=== PATIENT | female | born 1945 | race Hispanic/Latino ===

== ENCOUNTER 2018-03-05 10:59 | Day surgery (SDC) | payer MEDICARE, MEDICAID ==
[2018-03-05 11:46] LABS: #Eosinphils 0.1 thou/uL (0.0-0.7); #Lymphocytes 1.7 thou/uL (1.20-3.40); #Monocytes 0.8 thou/uL (0.11-0.59); #Neutrophils 10.2 thou/uL (1.40-6.50); %Basophils 0.2 % (0.0-1.0); %Eosinophils 0.6 % (0.0-10.0); %Lymphocytes 13.3 % (21.0-51.0); %Monocytes 6.4 % (0.0-10.0); %Neutrophils 79.4 % (42.0-75.0); Hemoglobin 15.5 g/dL (12.0-16.0); Mean Corpuscular HGB CONC 33.4 g/dL (32.0-36.0); Mean Corpuscular Volume 86.8 fL (78.0-98.0); Mean Platelet Volume 7.4 fL (7.4-10.4); Platelet Count 266 thou/uL (130-400); RBC Distribution Width 12.4 % (11.5-14.5); Red Blood Cell (RBC) Count 5.33 mill/uL (4.20-5.40); White Blood Cell (WBC) Count 12.8 thou/uL (4.8-10.8)
[2018-03-05 11:47] LABS: Bilirubin Negative (Negative); Blood, Urine Negative (Negative); Clarity CLEAR (Clear); Glucose, Urine (Dipstick) Negative (Negative); Leukocyte Negative (Negative); Nitrite Negative (Negative); Protein, Urine (Dipstick) 30 mg/dL (Neg-Trace); Specific Gravity, Urine 1.019 (1.002-1.036)
[2018-03-05 11:50] LABS: Bacteria/HPF None Seen HPF (None Seen); Hyaline Casts/LPF 0-3 HYALINE CAST LPF (0-3 Hyaline); RBC/HPF 0-3 HPF (0-3); Squamous Epithelial 0-3 HPF (0-3); WBC/HPF 0-3 HPF (0-3)
[2018-03-05 12:03] LABS: ALT (SGPT) 206 U/L (8-55); AST (SGOT) 456 U/L (5-34); Albumin 4.2 g/dL (3.4-4.8); Alkaline Phosphatase 154 U/L (40-150); Anion Gap 14 mmol/L (10-20); BUN (Urea Nitrogen) 13 mg/dL (9.8-20.1); Bilirubin, Total 0.9 mg/dL (0.2-1.2); Calc. Creatinine Clearance 0 mL/min (70-130); Calcium 9.2 mg/dL (7.8-10.44); Carbon Dioxide 22 mmol/L (23-31); Chloride 104 mmol/L (98-107); Estimated GFR-MDRD 86; Globulin 3.4 g/dL (2.4-3.5); Glucose 129 mg/dL (83-110); Protein, Total 7.6 g/dL (6.0-8.3); Sodium 136 mmol/L (136-145)
--- NOTE | 2018-03-05 14:07 | ULT ---
GALLBLADDER ULTRASUOND: HISTORY: Abdominal pain. COMPARISON: None. TECHNIQUE: Utilizing a multihertz transducer, sonographic imaging in the abdomen is performed in the longitudina l and transverse plane. FINDINGS: Pancreas is poorly defined due to bowel gas. The visualized pancreatic parenchyma appears to be echo genic. Correlate clinically for possible pancreatitis. There is increased echogenicity in the liver which may be due to hepatic steatosis or hepatocellular disease. Subsequent evaluation for hepatic masses and intrahepatic biliary dilatation is limited. Within the lumen of the gallbladder, there is echogenic material compatible with gallstones. Gallbla dder wall is thickened. There is no pericholecystic fluid. Negative Reina's sign is reported. Common bile duct diameter is 0.5 cm. The right kidney has a normal cortical echotexture. No hydronephrosis. The right kidney measures 10 cm in maximum dimension. IMPRESSION: 1. Echogenic pancreas. Correlate for pancreatitis. 2. Sonographic evidence of cholelithiasis with findings that are equivocal for cholecystitis. There is gallbladder wall thickening. However, a negative Reina's sign is reported. HIDA scan may be be neficial. POS: [facility]
[2018-03-05] MEDS ORDERED: Dexamethasone 20 MG/5 ML VIAL ONE (14:52)
[2018-03-05] MEDS ORDERED: PROPOFOL 200 MG/20 ML VIAL ONE (14:52)
[2018-03-05] MEDS ORDERED: Ondansetron HCl/PF 4 MG/2 ML Vial ONE (14:52)
[2018-03-05] MEDS ORDERED: Glycopyrrolate 0.2 MG/ML 5 ML SYRINGE ONE (14:52)
[2018-03-05] MEDS ORDERED: Lidocaine 1% PF 5 ML VIAL ONE (14:52)
[2018-03-05] MEDS ORDERED: Levofloxacin 500 mg/D5W 100 ml Premix Bag ONE (15:09)
[2018-03-05] MEDS ORDERED: Ketorolac Tromethamine 30 MG/ML VIAL ONE (15:50)
[2018-03-05] MEDS ORDERED: Scopolamine 1.5 mg/72 hour Patch ONE (15:50)
[2018-03-05] MEDS ORDERED: Bupivacaine HCl 0.5%/Epinephrine 1:200,000/PF 30 ml Vial ONE (16:54)
[2018-03-05] MEDS ORDERED: Fentanyl 100 MCG/2 ML VIAL ONE (17:01)
[2018-03-05] MEDS ORDERED: SUGAMMADEX SODIUM 200 MG/2 ML VIAL ONE (18:01)
--- NOTE | 2018-03-05 21:21 | OP ---
DATE OF PROCEDURE: 03/05/2018 PREOPERATIVE DIAGNOSES: Acute cholecystitis, cholelithiasis, gallbladder outlet obstruction. POSTOPERATIVE DIAGNOSES: Acute cholecystitis, cholelithiasis, gallbladder outlet obstruction. PROCEDURE: Laparoscopic video cholecystectomy. SURGEON: Fortino Sexton MD ANESTHESIA: General, local 0.5% Marcaine with epinephrine 30 mL. DESCRIPTION OF PROCEDURE: The patient was taken to the operating room, where under general anesthesi a, abdomen was prepared with ChloraPrep, draped in routine fashion. Local anesthetic infiltrated int o the skin and subcutaneous tissue at each port site. Infraumbilical incision was made. Pneumoperit oneum to 15 mmHg was obtained with the Veress needle, replacing it with a 5-port, laparoscope inserte d. Right subxiphoid incision made and 11-port placed. Right subcostal incision made in mid clavicul ar and anterior axillary lines and 5-ports placed. Liver was fatty. Gallbladder was acutely inflame d, thickened and edematous wall. Fundus was grasped, retracted cephalad. Infundibulum was grasped, reflected laterally. Cystic artery and duct were dissected free. Critical view obtained. Cystic ar nanette and duct doubly clipped proximally, divided, and gallbladder dissected free from its edematous a ttachments to the liver bed using cautery for hemostasis. Extensive cautery was used in liver bed fo r hemostasis in this fatty liver. Gallbladder and multiple stones were removed and submitted to Path ology. Hemostasis was ensured. Jeffery was used. Irrigant and pneumoperitoneum were evacuated. All instruments were removed and all skin incisions were approximated with interrupted subdermal 4-0 Mon ocryl and DermaGlue applied.
== END 2018-03-05 19:28 | disposition home or self-care (01) ==
LOC: ERS 10:59
PROVIDERS: ATTEND Specialist
PROC: 0FT44ZZ Resection of Gallbladder, Percutaneous Endoscopic Approach (ICD-10-PCS; principal; 2018-03-05)
DX: K81.2 Acute cholecystitis with chronic cholecystitis (principal); I10 Essential (primary) hypertension; E78.5 Hyperlipidemia, unspecified; E11.9 Type 2 diabetes mellitus without complications; E55.9 Vitamin D deficiency, unspecified; F41.9 Anxiety disorder, unspecified; F32.9 Major depressive disorder, single episode, unspecified; Z88.0 Allergy status to penicillin; Z91.14 Patient's other noncompliance with medication regimen
CPT/HCPCS: 36415; 76705; 80053; 81003; 81015; 83690; 85025; 88304; 93005; 96361; 96374; J0131; J0670; J1100; J1885; J1956; J2001; J2405; J2704; J3010

== ENCOUNTER 2020-12-05 10:06 | Outpatient (CLI) | payer MEDICARE, MEDICAID | END 2020-12-05 10:07 | disposition home or self-care (01) | LOC: CTENTCT 10:06 | PROVIDERS: ATTEND Student in an Organized Health Care Education/Training Program | DX: J32.9 Chronic sinusitis, unspecified (principal) | CPT/HCPCS: 70486 ==